=== PATIENT | male | born 1970 | race African-American/Black ===

== ENCOUNTER 2020-09-07 21:03 | Inpatient (IN) | payer SELFPAY ==
[2020-09-07 21:46] LABS: #Monocytes 0.6 10x3/uL (0.0-1.1); #Neutrophils 3.8 10x3/uL (1.5-8.4); %Basophils 0.4 % (0.0-2.0); %Eosinophils 0.6 % (0.0-6.0); %Lymphocytes 16.2 % (18.0-47.0); %Monocytes 11.3 % (0.0-10.0); %Neutrophils 71.3 % (40.0-75.0); Mean Corpuscular HGB CONC 31.6 g/dL (32.0-36.0); Mean Corpuscular Hemoglobin 29.7 pg (27.0-33.0); Mean Corpuscular Volume 94.1 fl (81.2-95.1); Mean Platelet Volume 11.8 fl (7.4-10.4); Platelet Count 208 10x3/uL (150-450); RBC Distribution Width 14.1 % (11.5-14.5); Red Blood Cell (RBC) Count 5.05 10x6/uL (4.32-5.72); White Blood Cell (WBC) Count 5.4 10x3/uL (3.5-10.5)
[2020-09-07 22:01] LABS: ALT (SGPT) 17 U/L (8-55); AST (SGOT) 15 U/L (5-34); Albumin 3.9 g/dL (3.5-5.0); Alkaline Phosphatase 71 U/L (40-110); Anion Gap 12 mmol/L (10-20); BUN (Urea Nitrogen) 9 mg/dL (8.9-20.6); Bilirubin, Total 1.7 mg/dL (0.2-1.2); Calc. Creatinine Clearance 0 mL/min (70-130); Calcium 9.4 mg/dL (7.8-10.44); Carbon Dioxide 31 mmol/L (22-29); Chloride 98 mmol/L (98-107); Globulin 4.2 g/dL (2.4-3.5); Glucose 174 mg/dL (70-105); Potassium 3.6 mmol/L (3.5-5.1); Protein, Total 8.1 g/dL (6.0-8.3); Sodium 137 mmol/L (136-145)
[2020-09-07 22:31] LABS: SARS-CoV-2 NAA Rapid Test Not Detected (NotDetected)
[2020-09-07] MEDS: Lorazepam 2 MG/ML VIAL SLOW IVP SCH (23:00)
[2020-09-07 23:25] LABS: CKMB 1.2 ng/mL (0-6.6)
[2020-09-07] MEDS ORDERED: Nitroglycerin 2% Ointment 1 INCH/1 GM Packet ONE (23:44)
[2020-09-07] MEDS ORDERED: Enoxaparin Sodium 100 MG/ML SYRINGE ONE (23:44)
[2020-09-07] MEDS ORDERED: Aspirin Chewable 81 MG TAB ONE (23:44)
[2020-09-07] MEDS ORDERED: Zolpidem Tartrate 5 MG TAB PO PRN (23:45)
[2020-09-07] MEDS ORDERED: Ondansetron PF 4 MG/2 ML Vial IVP PRN (23:45)
[2020-09-07] MEDS ORDERED: Guaifenesin DM 100-10/5 ML UDCUP PO PRN (23:45)
[2020-09-07] MEDS ORDERED: Calcium Carbonate 500 MG ChewTAB PO PRN (23:45)
[2020-09-07] MEDS ORDERED: Bisacodyl 5 MG TAB PO PRN (23:45)
[2020-09-07] MEDS ORDERED: hydrALAZINE 20 MG/ML VIAL SLOW IVP PRN (23:49)
[2020-09-07] MEDS ORDERED: Dextrose 50% Abboject 50 ML SYRINGE SLOW IVP PRN (23:53)
[2020-09-07] MEDS ORDERED: Dextrose 5% in Water 1,000 ML IV PRN (23:53)
[2020-09-07] MEDS ORDERED: Lorazepam 2 MG/ML VIAL ONE (23:53)
[2020-09-08] MEDS ORDERED: Furosemide 40 MG/4 ML VIAL ONE (00:55)
[2020-09-08] MEDS ORDERED: Labetalol HCl 100 MG/20 ML VIAL SLOW IVP PRN (01:14)
[2020-09-08 02:31] VITALS: BMI 52.2
[2020-09-08] MEDS ORDERED: Furosemide 40 MG/4 ML VIAL SLOW IVP SCH (03:00)
[2020-09-08 03:30] LABS: Bilirubin Neg (Negative); Blood, Urine Negative (Negative); Clarity Clear (Clear); Glucose, Urine (Dipstick) Normal (Negative); Ketone, Urine Negative (Negative); Leukocyte Negative (Negative); Nitrite Negative (Negative); Protein, Urine (Dipstick) Negative (Neg-Trace); Specific Gravity, Urine 1.005 (1.002-1.036); Urobilinogen Normal mg/dL (Less than 2); pH, Urine 6.5 (5.0-9.0)
[2020-09-08] MEDS: Lorazepam 2 MG/ML VIAL SLOW IVP SCH (04:19)
[2020-09-08 05:23] LABS: RBC/HPF None Seen HPF (0-3)
[2020-09-08 05:24] LABS: Bacteria/HPF None Seen HPF (None Seen); WBC/HPF None Seen HPF (0-3)
[2020-09-08 06:54] LABS: ALT (SGPT) 14 U/L (8-55); AST (SGOT) 15 U/L (5-34); Albumin 3.4 g/dL (3.5-5.0); Alkaline Phosphatase 62 U/L (40-110); Anion Gap 15 mmol/L (10-20); BUN (Urea Nitrogen) 8 mg/dL (8.9-20.6); Bilirubin, Total 1.3 mg/dL (0.2-1.2); Calc. Creatinine Clearance 239 mL/min (70-130); Calcium 8.4 mg/dL (7.8-10.44); Carbon Dioxide 29 mmol/L (22-29); Chloride 99 mmol/L (98-107); Globulin 3.8 g/dL (2.4-3.5); Glucose 169 mg/dL (70-105); Potassium 3.4 mmol/L (3.5-5.1); Protein, Total 7.2 g/dL (6.0-8.3); Sodium 140 mmol/L (136-145)
[2020-09-08 07:05] LABS: #Eosinphils 0.1 10x3/uL (0.0-0.5); #Monocytes 0.5 10x3/uL (0.0-1.1); #Neutrophils 2.9 10x3/uL (1.5-8.4); %Basophils 0.5 % (0.0-2.0); %Eosinophils 1.1 % (0.0-6.0); %Lymphocytes 20.5 % (18.0-47.0); %Monocytes 11.4 % (0.0-10.0); %Neutrophils 66.3 % (40.0-75.0); Hemoglobin 14.2 g/dL (13.5-17.5); Mean Corpuscular HGB CONC 30.9 g/dL (32.0-36.0); Mean Corpuscular Hemoglobin 29.6 pg (27.0-33.0); Mean Corpuscular Volume 95.6 fl (81.2-95.1); Mean Platelet Volume 12.2 fl (7.4-10.4); Platelet Count 196 10x3/uL (150-450); RBC Distribution Width 14.2 % (11.5-14.5); White Blood Cell (WBC) Count 4.4 10x3/uL (3.5-10.5)
[2020-09-08] MEDS: Albuterol Sulfate 2.5 mg/3 ml Neb NEB SCH ×3 (07:40→19:45)
[2020-09-08] MEDS ORDERED: Carvedilol 6.25 MG TAB PO SCH ×2 (08:00→19:15)
[2020-09-08] MEDS ORDERED: Potassium Chloride 20 MEQ TAB PO SCH (08:15)
[2020-09-08] MEDS: Famotidine/PF 20 mg/2ml Vial SLOW IVP SCH ×2 (09:00→21:28)
[2020-09-08 11:24] LABS: Hemoglobin A1c 8.2 % (4.0-6.0)
[2020-09-08] MEDS: Enoxaparin Sodium 40 MG/0.4 ML SYRINGE SC SCH (19:30)
[2020-09-08] MEDS: Aspirin 81 mg Enteric Coated Tablet PO SCH (19:30)
[2020-09-08] MEDS: Losartan 25 MG TAB PO SCH (19:31)
[2020-09-08] MEDS: Senokot S 8.6-50 MG TAB PO SCH ×2 (19:31→21:29)
[2020-09-09] MEDS: Albuterol Sulfate 2.5 mg/3 ml Neb NEB SCH ×4 (01:25→19:35)
[2020-09-09] MEDS: HumaLOG 300 UNITS/3 ML VIAL SC PRN ×2 (06:20→21:45)
[2020-09-09] MEDS: Losartan 25 MG TAB PO SCH (09:00)
[2020-09-09] MEDS: Aspirin 81 mg Enteric Coated Tablet PO SCH (09:00)
[2020-09-09] MEDS: Famotidine/PF 20 mg/2ml Vial SLOW IVP SCH ×2 (09:00→20:06)
[2020-09-09] MEDS: Enoxaparin Sodium 40 MG/0.4 ML SYRINGE SC SCH (09:00)
[2020-09-09] MEDS: Carvedilol 6.25 MG TAB PO SCH ×2 (09:00→18:00)
[2020-09-09] MEDS: Fluticasone Propionate Nasal Spray 16 gm Bottle NASAL SCH (12:26)
[2020-09-09] MEDS: Senokot S 8.6-50 MG TAB PO SCH ×2 (12:42→20:06)
[2020-09-09] MEDS: Polyethylene Glycol 3350 17 GM Packet PO SCH (16:16)
[2020-09-10] MEDS: HYDROcodone/Acetaminophen 5/325 mg Tablet PO PRN ×2 (01:05→09:01)
[2020-09-10] MEDS: Albuterol Sulfate 2.5 mg/3 ml Neb NEB SCH ×4 (01:30→20:30)
[2020-09-10] MEDS: Furosemide 20 MG/2 ML VIAL SLOW IVP SCH ×2 (05:45→15:11)
[2020-09-10] MEDS: Polyethylene Glycol 3350 17 GM Packet PO SCH (09:00)
[2020-09-10] MEDS: Famotidine/PF 20 mg/2ml Vial SLOW IVP SCH ×2 (09:01→20:24)
[2020-09-10] MEDS: Losartan 25 MG TAB PO SCH (09:01)
[2020-09-10] MEDS: Enoxaparin Sodium 40 MG/0.4 ML SYRINGE SC SCH (09:01)
[2020-09-10] MEDS: Senokot S 8.6-50 MG TAB PO SCH ×2 (09:01→20:24)
[2020-09-10] MEDS: Carvedilol 6.25 MG TAB PO SCH ×2 (09:02→17:34)
[2020-09-10] MEDS: Aspirin 81 mg Enteric Coated Tablet PO SCH (09:02)
[2020-09-10] MEDS: Fluticasone Propionate Nasal Spray 16 gm Bottle NASAL SCH (13:03)
[2020-09-10] MEDS ORDERED: Hydrochlorothiazide 25 MG TAB PO SCH (16:00)
[2020-09-10] MEDS: Hydrochlorothiazide 25 MG TAB PO SCH (17:35)
[2020-09-10] MEDS: Acetaminophen 325 MG TAB PO PRN (20:24)
[2020-09-10] MEDS: HumaLOG 300 UNITS/3 ML VIAL SC PRN (22:30)
[2020-09-10] MEDS ORDERED: Oxymetazoline HCl 0.05% ( 15 ML ) NASAL SCH (23:30)
[2020-09-11] MEDS ORDERED: Oxymetazoline HCl 0.05% ( 15 ML ) ONE (00:07)
[2020-09-11] MEDS: Albuterol Sulfate 2.5 mg/3 ml Neb NEB SCH ×2 (00:55→07:30)
[2020-09-11] MEDS: Furosemide 20 MG/2 ML VIAL SLOW IVP SCH (05:54)
[2020-09-11] MEDS: Acetaminophen 325 MG TAB PO PRN (06:12)
[2020-09-11] MEDS: Senokot S 8.6-50 MG TAB PO SCH (08:30)
[2020-09-11] MEDS: Polyethylene Glycol 3350 17 GM Packet PO SCH (08:30)
[2020-09-11] MEDS: Enoxaparin Sodium 40 MG/0.4 ML SYRINGE SC SCH (08:34)
[2020-09-11] MEDS: Famotidine/PF 20 mg/2ml Vial SLOW IVP SCH (08:34)
[2020-09-11] MEDS: Hydrochlorothiazide 25 MG TAB PO SCH (08:34)
[2020-09-11] MEDS: Carvedilol 6.25 MG TAB PO SCH (08:35)
[2020-09-11] MEDS: Losartan 25 MG TAB PO SCH (08:35)
[2020-09-11] MEDS: Aspirin 81 mg Enteric Coated Tablet PO SCH (08:35)
[2020-09-11] MEDS ORDERED: Oxymetazoline HCl 0.05% ( 15 ML ) NASAL SCH (09:00)
[2020-09-11] MEDS: Fluticasone Propionate Nasal Spray 16 gm Bottle NASAL SCH (10:03)
[2020-09-11 11:16] VITALS: BP 152/62; TEMP 97.8
[2020-09-11] MEDS: HumaLOG 300 UNITS/3 ML VIAL SC PRN (11:18)
== END 2020-09-11 13:32 | disposition home or self-care (01) | DRG 391 ==
LOC: CSHERS 21:03 → CSHTELE 09-08 02:08
PROVIDERS: ADMIT Student in an Organized Health Care Education/Training Program; ATTEND Family Medicine
DX: K59.00 Constipation, unspecified (principal); J96.01 Acute respiratory failure with hypoxia; Z68.43 Body mass index [BMI] 50.0-59.9, adult; E66.2 Morbid (severe) obesity with alveolar hypoventilation; I16.0 Hypertensive urgency; Z20.822 Contact with and (suspected) exposure to COVID-19; E11.65 Type 2 diabetes mellitus with hyperglycemia
CPT/HCPCS: 0240U; 36416; 71275; 74022; 74177; 74250; 80053; 81001; 82553; 83036; 83690; 83880; 84443; 84484; 85025; 93005; 93306; 93970; 94640; 94760; 96372; 96374; 96375; J0360; J1650; J1815; J1940; J2060; J7611; S0028

== ENCOUNTER 2021-09-19 11:31 | Inpatient (IN) | payer SELFPAY ==
[2021-09-19 12:09] LABS: #Monocytes 0.9 10x3/uL (0.0-1.1); #Neutrophils 18.5 10x3/uL (1.5-8.4); %Basophils 0.1 % (0.0-2.0); %Lymphocytes 3.4 % (18.0-47.0); %Monocytes 4.6 % (0.0-10.0); Mean Corpuscular HGB CONC 31.3 g/dL (32.0-36.0); Mean Corpuscular Hemoglobin 30.1 pg (27.0-33.0); Mean Corpuscular Volume 96.1 fl (81.2-95.1); Mean Platelet Volume 11.3 fl (7.4-10.4); Platelet Count 181 10x3/uL (150-450); RBC Distribution Width 14.3 % (11.5-14.5); Red Blood Cell (RBC) Count 4.32 10x6/uL (4.32-5.72); White Blood Cell (WBC) Count 20.3 10x3/uL (3.5-10.5)
[2021-09-19] MEDS ORDERED: Cefepime 2 GM VIAL ONE (12:17)
[2021-09-19 12:18] LABS: INR-International Normal Ratio 1.2; PTT 26.9 sec (22.0-33.0); Prothrombin Time 12.8 sec (9.5-12.1)
[2021-09-19 12:25] LABS: ALT (SGPT) 13 U/L (8-55); AST (SGOT) 22 U/L (5-34); Albumin 3.9 g/dL (3.5-5.0); Alkaline Phosphatase 64 U/L (40-110); Anion Gap 15 mmol/L (10-20); BUN (Urea Nitrogen) 12 mg/dL (8.4-25.7); Bilirubin, Total 2.4 mg/dL (0.2-1.2); Calc. Creatinine Clearance 0 mL/min (70-130); Calcium 9.3 mg/dL (7.8-10.44); Carbon Dioxide 28 mmol/L (22-29); Chloride 99 mmol/L (98-107); Glucose 237 mg/dL (70-105); Magnesium 1.4 mg/dL (1.6-2.6); Protein, Total 7.9 g/dL (6.0-8.3); Sodium 138 mmol/L (136-145)
[2021-09-19 12:38] LABS: ALV-art Gradient 114.435 mmHg (0-20); Actual Bicarbonate (HCO3a) 29.3 mEq/L (22-28); Base Excess (BEa) 4.7 mEq/L (-2.0 to +3.0); CO2 Tension 43.3 mmHg (35.0-45.0); Calcium, Ionized (arterial) 1.14 mmol/L (1.12-1.30); Carboxyhemoglobin (COHb) 1.2 gm% (0.0-3.0); Hemoglobin (Hb) 13.7 g/dL (14.0-18.0); O2 Tension (PaO2), arterial 59.6 mmHg (80.0-100.0); Potassium - ABG Lab 3.6 mmol/L (3.70-5.30); Puncture Site RRA; pH, Arterial 7.45 (7.35-7.45)
[2021-09-19 12:38] LABS: Band 4 % (5-11); Lymphocytes 3 % (21-51); MDiff Complete? YES; Neutrophil 91 % (42-75)
[2021-09-19 12:39] LABS: Large Platelets SLIGHT; Monocytes 2 % (0-10); Platelet Morphology Comment Appears Adequate; RBC Morphology Normal
[2021-09-19 12:45] LABS: CKMB 0.4 ng/mL (0-6.6)
[2021-09-19 13:07] LABS: SARS-CoV-2 NAA Rapid Test Not Detected (NotDetected)
[2021-09-19] MEDS ORDERED: Acetaminophen 500 MG TAB ONE (13:14)
[2021-09-19 13:55] LABS: Bilirubin Neg (Negative); Blood, Urine 10 (Negative); Clarity Clear (Clear); Glucose, Urine (Dipstick) Normal (Negative); Ketone, Urine Negative (Negative); Leukocyte Negative (Negative); Nitrite Negative (Negative); Protein, Urine (Dipstick) 100 mg/dl (Neg-Trace)
[2021-09-19 14:21] LABS: Bacteria/HPF Rare-Few HPF (None Seen); Mucous/LPF Rare LPF (<2+); RBC/HPF 0-3 HPF (0-3); Squamous Epithelial 0-3 HPF (0-3); WBC/HPF 0-3 HPF (0-3)
[2021-09-19] MEDS ORDERED: Ondansetron ODT 4 MG TAB PO PRN (15:05)
[2021-09-19] MEDS ORDERED: Acetaminophen 650 MG Suppository PR PRN (15:05)
[2021-09-19] MEDS ORDERED: Acetaminophen 325 MG TAB PO PRN (15:05)
[2021-09-19] MEDS ORDERED: Ondansetron PF 4 MG/2 ML Vial IVP PRN (15:05)
[2021-09-19] MEDS ORDERED: Magnesium 2 GM/50 ML(in water) 2 GM in Premix Bag 1 BAG IVPB SCH (15:15)
[2021-09-19] MEDS ORDERED: Vancomycin 1 GM in Premix Bag 1 BAG IVPB SCH (15:15)
[2021-09-19] MEDS ORDERED: Loratadine 10 MG TAB PO SCH (15:30)
[2021-09-19 15:33] LABS: Troponin I 0.075 ng/mL (< 0.028)
[2021-09-19] MEDS ORDERED: Furosemide 40 MG/4 ML VIAL SLOW IVP SCH (16:00)
[2021-09-19] MEDS ORDERED: HumaLOG 300 UNITS/3 ML VIAL SC PRN (16:00)
[2021-09-19] MEDS ORDERED: Dextrose 50% Abboject 50 ML SYRINGE SLOW IVP PRN (16:00)
[2021-09-19] MEDS ORDERED: Dextrose 5% in Water 1,000 ML IV PRN (16:00)
[2021-09-19] MEDS: Carvedilol 6.25 MG TAB PO SCH (16:37)
[2021-09-19] MEDS: HumaLOG 300 UNITS/3 ML VIAL SC PRN (16:40)
[2021-09-19 19:18] LABS: Troponin I 0.069 ng/mL (< 0.028)
[2021-09-19] MEDS: Fluticasone Propionate Nasal Spray 16 gm Bottle NASAL SCH (20:23)
[2021-09-19] MEDS: Heparin 5,000 UNITS/ML VIAL SC SCH (20:24)
[2021-09-19] MEDS ORDERED: VANCOMYCIN 2 GRAM/400 ML BAG 2 GM in Premix Bag 1 BAG IVPB SCH (23:59)
[2021-09-20] MEDS ORDERED: Labetalol HCl 100 MG/20 ML VIAL SLOW IVP SCH (02:15)
[2021-09-20 04:41] LABS: #Monocytes 0.7 10x3/uL (0.0-1.1); #Neutrophils 14.1 10x3/uL (1.5-8.4); %Basophils 0.2 % (0.0-2.0); %Eosinophils 0.2 % (0.0-6.0); %Lymphocytes 4.4 % (18.0-47.0); %Monocytes 4.4 % (0.0-10.0); %Neutrophils 90.4 % (40.0-75.0); Hemoglobin 12.6 g/dL (13.5-17.5); Mean Corpuscular HGB CONC 31.5 g/dL (32.0-36.0); Mean Corpuscular Hemoglobin 30.1 pg (27.0-33.0); Mean Corpuscular Volume 95.5 fl (81.2-95.1); Platelet Count 172 10x3/uL (150-450); RBC Distribution Width 14.5 % (11.5-14.5); Red Blood Cell (RBC) Count 4.19 10x6/uL (4.32-5.72); White Blood Cell (WBC) Count 15.5 10x3/uL (3.5-10.5)
[2021-09-20 04:49] LABS: Anion Gap 15 mmol/L (10-20); BUN (Urea Nitrogen) 10 mg/dL (8.4-25.7); Calc. Creatinine Clearance 180 mL/min (70-130); Calcium 8.9 mg/dL (7.8-10.44); Carbon Dioxide 29 mmol/L (22-29); Chloride 96 mmol/L (98-107); Glucose 165 mg/dL (70-105); Potassium 3.8 mmol/L (3.5-5.1); Sodium 136 mmol/L (136-145)
[2021-09-20 06:13] VITALS: BMI 50.3
[2021-09-20] MEDS: Heparin 5,000 UNITS/ML VIAL SC SCH ×2 (08:30→20:22)
[2021-09-20] MEDS: Atorvastatin Calcium 40 MG TAB PO SCH (08:30)
[2021-09-20] MEDS: Carvedilol 6.25 MG TAB PO SCH (08:30)
[2021-09-20] MEDS: Fluticasone Propionate Nasal Spray 16 gm Bottle NASAL SCH ×2 (08:31→20:58)
[2021-09-20] MEDS: Vancomycin 1.5 GRAM/300 ML BAG 1.5 GM in Premix Bag 1 BAG IVPB SCH ×2 (12:06→20:22)
[2021-09-20] MEDS: HumaLOG 300 UNITS/3 ML VIAL SC PRN ×2 (16:50→21:01)
[2021-09-20] MEDS: Carvedilol 12.5 MG TAB PO SCH (16:50)
[2021-09-20] MEDS ORDERED: Furosemide 100 MG/10 ML VIAL SLOW IVP SCH (17:00)
[2021-09-20] MEDS ORDERED: Piperacillin/Tazobactam 3.375 GM in Sodium Chloride 0.9% 100 ML IVPB SCH ×2 (17:00→17:45)
[2021-09-20] MEDS ORDERED: Loratadine 10 MG TAB PO SCH (17:15)
[2021-09-20] MEDS: Piperacillin/Tazobactam 3.375 GM in Sodium Chloride 0.9% 100 ML IVPB SCH (20:22)
[2021-09-21 04:38] LABS: #Monocytes 0.8 10x3/uL (0.0-1.1); #Neutrophils 9.3 10x3/uL (1.5-8.4); %Basophils 0.2 % (0.0-2.0); %Eosinophils 0.3 % (0.0-6.0); %Lymphocytes 8.1 % (18.0-47.0); %Monocytes 7.1 % (0.0-10.0); %Neutrophils 83.8 % (40.0-75.0); Hemoglobin 11.4 g/dL (13.5-17.5); Mean Corpuscular HGB CONC 31.7 g/dL (32.0-36.0); Mean Corpuscular Hemoglobin 30.6 pg (27.0-33.0); Mean Corpuscular Volume 96.5 fl (81.2-95.1); Mean Platelet Volume 11.9 fl (7.4-10.4); Platelet Count 159 10x3/uL (150-450); RBC Distribution Width 14.5 % (11.5-14.5); Red Blood Cell (RBC) Count 3.73 10x6/uL (4.32-5.72); White Blood Cell (WBC) Count 11.1 10x3/uL (3.5-10.5)
[2021-09-21 05:00] LABS: Anion Gap 15 mmol/L (10-20); BUN (Urea Nitrogen) 17 mg/dL (8.4-25.7); Calc. Creatinine Clearance 174 mL/min (70-130); Calcium 8.7 mg/dL (7.8-10.44); Carbon Dioxide 30 mmol/L (22-29); Chloride 99 mmol/L (98-107); Glucose 173 mg/dL (70-105); Potassium 3.5 mmol/L (3.5-5.1); Sodium 140 mmol/L (136-145)
[2021-09-21] MEDS: Furosemide 100 MG/10 ML VIAL SLOW IVP SCH ×2 (05:06→15:19)
[2021-09-21] MEDS: Vancomycin 1.5 GRAM/300 ML BAG 1.5 GM in Premix Bag 1 BAG IVPB SCH (05:06)
[2021-09-21] MEDS: Piperacillin/Tazobactam 3.375 GM in Sodium Chloride 0.9% 100 ML IVPB SCH ×3 (06:13→22:53)
[2021-09-21] MEDS: Fluticasone Propionate Nasal Spray 16 gm Bottle NASAL SCH ×2 (07:50→20:17)
[2021-09-21] MEDS: Heparin 5,000 UNITS/ML VIAL SC SCH ×2 (07:50→20:17)
[2021-09-21] MEDS: Carvedilol 12.5 MG TAB PO SCH ×2 (07:50→17:14)
[2021-09-21] MEDS: Atorvastatin Calcium 40 MG TAB PO SCH (07:50)
[2021-09-21] MEDS: Loratadine 10 MG TAB PO SCH (07:50)
[2021-09-21] MEDS: HumaLOG 300 UNITS/3 ML VIAL SC PRN ×2 (07:51→17:13)
[2021-09-21 11:20] LABS: Vancomycin, Trough 22.3 ug/mL
[2021-09-21] MEDS ORDERED: VANCOMYCIN 1.25 GM/250 ML BAG 1.25 GM in Premix Bag 1 BAG IVPB SCH (12:00)
[2021-09-21] MEDS: Vancomycin HCl 1 GM in Sodium Chloride 0.9% 250 ML 250 ML IVPB SCH ×2 (15:24→21:16)
[2021-09-22 04:30] LABS: #Eosinphils 0.1 10x3/uL (0.0-0.5); #Monocytes 0.6 10x3/uL (0.0-1.1); #Neutrophils 5.3 10x3/uL (1.5-8.4); %Basophils 0.3 % (0.0-2.0); %Eosinophils 1.4 % (0.0-6.0); %Lymphocytes 13.3 % (18.0-47.0); %Monocytes 8.4 % (0.0-10.0); %Neutrophils 76.3 % (40.0-75.0); Hemoglobin 10.8 g/dL (13.5-17.5); Mean Corpuscular HGB CONC 30.8 g/dL (32.0-36.0); Mean Corpuscular Hemoglobin 29.8 pg (27.0-33.0); Mean Platelet Volume 11.7 fl (7.4-10.4); Platelet Count 176 10x3/uL (150-450); RBC Distribution Width 14.3 % (11.5-14.5); Red Blood Cell (RBC) Count 3.62 10x6/uL (4.32-5.72); White Blood Cell (WBC) Count 6.9 10x3/uL (3.5-10.5)
[2021-09-22 04:38] LABS: Anion Gap 12 mmol/L (10-20); BUN (Urea Nitrogen) 19 mg/dL (8.4-25.7); Calc. Creatinine Clearance 221 mL/min (70-130); Calcium 8.5 mg/dL (7.8-10.44); Carbon Dioxide 33 mmol/L (22-29); Chloride 98 mmol/L (98-107); Glucose 170 mg/dL (70-105); Potassium 3.3 mmol/L (3.5-5.1); Sodium 140 mmol/L (136-145)
[2021-09-22] MEDS: Furosemide 100 MG/10 ML VIAL SLOW IVP SCH (05:27)
[2021-09-22] MEDS: Vancomycin HCl 1 GM in Sodium Chloride 0.9% 250 ML 250 ML IVPB SCH (05:28)
[2021-09-22] MEDS: Piperacillin/Tazobactam 3.375 GM in Sodium Chloride 0.9% 100 ML IVPB SCH (06:42)
[2021-09-22] MEDS: Carvedilol 12.5 MG TAB PO SCH ×2 (11:21→18:03)
[2021-09-22] MEDS: Fluticasone Propionate Nasal Spray 16 gm Bottle NASAL SCH ×2 (11:21→21:04)
[2021-09-22] MEDS: Atorvastatin Calcium 40 MG TAB PO SCH (11:21)
[2021-09-22] MEDS: Heparin 5,000 UNITS/ML VIAL SC SCH ×2 (11:22→21:04)
[2021-09-22] MEDS: Loratadine 10 MG TAB PO SCH (11:22)
[2021-09-22] MEDS ORDERED: Electrolyte Replacement Protocol FS SCH (13:30)
[2021-09-22] MEDS ORDERED: Potassium Chloride 20 MEQ TAB PO SCH (13:45)
[2021-09-22] MEDS: cefTRIAXone\\ROCEPHIN 1 GM in Sodium Chloride 0.9% 100 ML IVPB SCH (14:59)
[2021-09-22] MEDS: HumaLOG 300 UNITS/3 ML VIAL SC PRN (15:22)
[2021-09-22] MEDS ORDERED: Furosemide 40 MG/4 ML VIAL SLOW IVP SCH (20:00)
[2021-09-22] MEDS: Doxycycline 100 MG CAP PO SCH (21:04)
[2021-09-23 04:47] LABS: #Eosinphils 0.2 10x3/uL (0.0-0.5); #Monocytes 0.6 10x3/uL (0.0-1.1); #Neutrophils 4.1 10x3/uL (1.5-8.4); %Basophils 0.3 % (0.0-2.0); %Eosinophils 2.5 % (0.0-6.0); %Monocytes 10.4 % (0.0-10.0); %Neutrophils 68.3 % (40.0-75.0); Hemoglobin 11.5 g/dL (13.5-17.5); Mean Corpuscular HGB CONC 30.6 g/dL (32.0-36.0); Mean Corpuscular Hemoglobin 30.2 pg (27.0-33.0); Mean Corpuscular Volume 98.7 fl (81.2-95.1); Mean Platelet Volume 11.2 fl (7.4-10.4); Platelet Count 202 10x3/uL (150-450); RBC Distribution Width 14.1 % (11.5-14.5); Red Blood Cell (RBC) Count 3.81 10x6/uL (4.32-5.72); White Blood Cell (WBC) Count 6.1 10x3/uL (3.5-10.5)
[2021-09-23 05:02] LABS: Phosphorus 2.6 mg/dL (2.3-4.7)
[2021-09-23 05:11] LABS: Anion Gap 13 mmol/L (10-20); BUN (Urea Nitrogen) 16 mg/dL (8.4-25.7); Calc. Creatinine Clearance 247 mL/min (70-130); Calcium 8.8 mg/dL (7.8-10.44); Carbon Dioxide 35 mmol/L (22-29); Chloride 97 mmol/L (98-107); Glucose 164 mg/dL (70-105); Magnesium 1.7 mg/dL (1.6-2.6); Potassium 3.5 mmol/L (3.5-5.1); Sodium 141 mmol/L (136-145)
[2021-09-23] MEDS ORDERED: Magnesium 2 GM/50 ML(in water) 2 GM in Premix Bag 1 BAG IVPB SCH (05:30)
[2021-09-23] MEDS ORDERED: Potassium Chloride 20 MEQ TAB PO SCH ×2 (05:30→11:30)
[2021-09-23] MEDS ORDERED: Furosemide 100 MG/10 ML VIAL SLOW IVP SCH (06:00)
[2021-09-23] MEDS: Atorvastatin Calcium 40 MG TAB PO SCH (08:56)
[2021-09-23] MEDS: HumaLOG 300 UNITS/3 ML VIAL SC PRN ×2 (08:56→12:28)
[2021-09-23] MEDS: Carvedilol 12.5 MG TAB PO SCH ×2 (08:56→17:46)
[2021-09-23] MEDS: Doxycycline 100 MG CAP PO SCH ×2 (08:56→20:56)
[2021-09-23] MEDS: Loratadine 10 MG TAB PO SCH (08:56)
[2021-09-23] MEDS: Heparin 5,000 UNITS/ML VIAL SC SCH ×2 (08:56→20:57)
[2021-09-23] MEDS: Fluticasone Propionate Nasal Spray 16 gm Bottle NASAL SCH ×2 (08:57→20:57)
[2021-09-23 10:09] LABS: Potassium 3.5 mmol/L (3.5-5.1)
[2021-09-23] MEDS: cefTRIAXone\\ROCEPHIN 1 GM in Sodium Chloride 0.9% 100 ML IVPB SCH (12:30)
[2021-09-23] MEDS: Furosemide 40 MG/4 ML VIAL SLOW IVP SCH ×2 (15:15→20:56)
[2021-09-23] MEDS ORDERED: Senokot S 8.6-50 MG TAB PO PRN (19:01)
[2021-09-24 04:42] LABS: #Eosinphils 0.2 10x3/uL (0.0-0.5); #Monocytes 0.6 10x3/uL (0.0-1.1); #Neutrophils 4.2 10x3/uL (1.5-8.4); %Basophils 0.6 % (0.0-2.0); %Eosinophils 2.7 % (0.0-6.0); %Lymphocytes 20.4 % (18.0-47.0); %Monocytes 9.4 % (0.0-10.0); %Neutrophils 66.4 % (40.0-75.0); Hemoglobin 12.1 g/dL (13.5-17.5); Mean Corpuscular HGB CONC 30.8 g/dL (32.0-36.0); Mean Corpuscular Hemoglobin 30.6 pg (27.0-33.0); Mean Corpuscular Volume 99.2 fl (81.2-95.1); Mean Platelet Volume 11.4 fl (7.4-10.4); Platelet Count 226 10x3/uL (150-450); RBC Distribution Width 13.9 % (11.5-14.5); Red Blood Cell (RBC) Count 3.96 10x6/uL (4.32-5.72); White Blood Cell (WBC) Count 6.3 10x3/uL (3.5-10.5)
[2021-09-24 04:45] LABS: Anion Gap 12 mmol/L (10-20); BUN (Urea Nitrogen) 16 mg/dL (8.4-25.7); Calc. Creatinine Clearance 258 mL/min (70-130); Calcium 9.1 mg/dL (7.8-10.44); Carbon Dioxide 36 mmol/L (22-29); Chloride 97 mmol/L (98-107); Glucose 158 mg/dL (70-105); Potassium 3.6 mmol/L (3.5-5.1); Sodium 141 mmol/L (136-145)
[2021-09-24] MEDS ORDERED: Magnesium 2 GM/50 ML(in water) 2 GM in Premix Bag 1 BAG IVPB SCH (06:00)
[2021-09-24 07:13] LABS: Actual Bicarbonate (HCO3v) 37 mEq/L (22-28); Base Excess 9.7 mEq/L (-2.0 to +3.0); Calcium, Ionized (venous) 1.06 mmol/L (1.16-1.32); Chloride (VBG) 97 mmol/L (98-106); Hemoglobin (Hb) 13.2 g/dL (13.1-17.2); Potassium (VBG) 3.56 mmol/L (3.70-5.30); Puncture Site Other Site; RapidComm Collect By CSUC.CNC; Sodium 138.9 mmol/L (133-146); pH (venous) 7.38 (7.32-7.43)
[2021-09-24] MEDS: Fluticasone Propionate Nasal Spray 16 gm Bottle NASAL SCH ×2 (09:11→20:22)
[2021-09-24] MEDS: Furosemide 40 MG/4 ML VIAL SLOW IVP SCH ×2 (09:11→15:18)
[2021-09-24] MEDS: Atorvastatin Calcium 40 MG TAB PO SCH (09:11)
[2021-09-24] MEDS: Carvedilol 12.5 MG TAB PO SCH ×2 (09:11→16:15)
[2021-09-24] MEDS: Heparin 5,000 UNITS/ML VIAL SC SCH ×2 (09:11→20:22)
[2021-09-24] MEDS: Doxycycline 100 MG CAP PO SCH ×2 (09:11→20:21)
[2021-09-24] MEDS: Loratadine 10 MG TAB PO SCH (09:11)
[2021-09-24] MEDS: Polyethylene Glycol 3350 17 GM Packet PO SCH (09:12)
[2021-09-24] MEDS: HumaLOG 300 UNITS/3 ML VIAL SC PRN ×2 (11:28→16:32)
[2021-09-24] MEDS: cefTRIAXone\\ROCEPHIN 1 GM in Sodium Chloride 0.9% 100 ML IVPB SCH (15:17)
[2021-09-24] MEDS ORDERED: hydrOXYzine 25 MG TAB PO PRN (15:42)
[2021-09-24] MEDS ORDERED: Lorazepam 0.5 MG TAB PO PRN (17:35)
[2021-09-25 05:26] LABS: BUN (Urea Nitrogen) 15 mg/dL (8.4-25.7); Calc. Creatinine Clearance 246 mL/min (70-130); Calcium 9.4 mg/dL (7.8-10.44); Glucose 156 mg/dL (70-105); Magnesium 2.1 mg/dL (1.6-2.6)
[2021-09-25 05:33] LABS: Anion Gap 18 mmol/L (10-20); Carbon Dioxide 34 mmol/L (22-29); Chloride 95 mmol/L (98-107); Potassium 3.9 mmol/L (3.5-5.1); Sodium 143 mmol/L (136-145)
[2021-09-25] MEDS: Atorvastatin Calcium 40 MG TAB PO SCH (08:33)
[2021-09-25] MEDS: Carvedilol 12.5 MG TAB PO SCH (08:33)
[2021-09-25] MEDS: Doxycycline 100 MG CAP PO SCH (08:33)
[2021-09-25] MEDS: Loratadine 10 MG TAB PO SCH (08:34)
[2021-09-25] MEDS: Heparin 5,000 UNITS/ML VIAL SC SCH (08:34)
[2021-09-25] MEDS: Polyethylene Glycol 3350 17 GM Packet PO SCH (08:35)
[2021-09-25] MEDS: Fluticasone Propionate Nasal Spray 16 gm Bottle NASAL SCH (08:40)
[2021-09-25] MEDS ORDERED: Furosemide 40 MG/4 ML VIAL SLOW IVP SCH (09:00)
[2021-09-25] MEDS: cefTRIAXone\\ROCEPHIN 1 GM in Sodium Chloride 0.9% 100 ML IVPB SCH (15:11)
[2021-09-25 16:55] VITALS: BP 169/94; TEMP 97.9
== END 2021-09-25 17:17 | disposition home or self-care (01) | DRG 871 ==
LOC: CSHERS 11:31 → CSHICU 15:08 → CSHTELE 09-21 11:17
PROVIDERS: ADMIT Family Medicine; ATTEND Family Medicine
PROC: 3E03329 Introduction of Other Anti-infective into Peripheral Vein, Percutaneous Approach (ICD-10-PCS; principal; 2021-09-19)
PROC: 5A09357 Assistance with Respiratory Ventilation, Less than 24 Consecutive Hours, Continuous Positive Airway Pressure (ICD-10-PCS; 2021-09-19)
DX: A41.9 Sepsis, unspecified organism (principal); J96.21 Acute and chronic respiratory failure with hypoxia; J96.22 Acute and chronic respiratory failure with hypercapnia; L03.116 Cellulitis of left lower limb; Z68.42 Body mass index [BMI] 45.0-49.9, adult; E66.2 Morbid (severe) obesity with alveolar hypoventilation; E87.3 Alkalosis; R79.89 Other specified abnormal findings of blood chemistry; Z20.822 Contact with and (suspected) exposure to COVID-19; I11.0 Hypertensive heart disease with heart failure; I50.9 Heart failure, unspecified; E11.9 Type 2 diabetes mellitus without complications; E78.5 Hyperlipidemia, unspecified; Z79.899 Other long term (current) drug therapy; Z79.84 Long term (current) use of oral hypoglycemic drugs; Z90.49 Acquired absence of other specified parts of digestive tract
CPT/HCPCS: 36415; 36416; 36600; 71275; 80048; 80053; 80202; 81003; 81015; 82553; 82805; 83605; 83735; 83880; 84100; 84145; 84443; 84484; 85025; 85610; 85730; 87040; 93005; 93010; 93306; 94760; 96365; 96366; 96367; J0692; J0696; J1644; J1815; J1940; J2543; J3370; J3475; J3490; J7050

== ENCOUNTER 2022-12-21 13:50 | Inpatient (IN) | payer OTHER ==
[2022-12-21] MEDS ORDERED: Iopamidol 300 61% 100 ML VIAL FS ONE (14:21)
[2022-12-21 15:05] LABS: #Monocytes 1.3 10x3/uL (0.0-1.1); #Neutrophils 11.7 10x3/uL (1.5-8.4); %Basophils 0.2 % (0.0-2.0); %Eosinophils 0.2 % (0.0-6.0); %Lymphocytes 7.2 % (18.0-47.0); %Monocytes 9.1 % (0.0-10.0); %Neutrophils 82.9 % (40.0-75.0); Mean Corpuscular HGB CONC 31.4 g/dL (32.0-36.0); Mean Corpuscular Hemoglobin 30.9 pg (27.0-33.0); Mean Corpuscular Volume 98.5 fl (81.2-95.1); Mean Platelet Volume 11.6 fl (7.4-10.4); Platelet Count 222 10x3/uL (150-450); RBC Distribution Width 13.4 % (11.5-14.5); Red Blood Cell (RBC) Count 4.53 10x6/uL (4.32-5.72); White Blood Cell (WBC) Count 14.1 10x3/uL (3.5-10.5)
[2022-12-21 15:18] LABS: ALT (SGPT) 15 U/L (8-55); AST (SGOT) 15 U/L (5-34); Albumin 3.9 g/dL (3.5-5.0); Alkaline Phosphatase 61 U/L (40-110); Anion Gap 17 mmol/L (10-20); BUN (Urea Nitrogen) 14 mg/dL (8.4-25.7); Bilirubin, Total 1.2 mg/dL (0.2-1.2); Calc. Creatinine Clearance 0 mL/min (70-130); Calcium 9.4 mg/dL (7.8-10.44); Carbon Dioxide 32 mmol/L (22-29); Chloride 100 mmol/L (98-107); Estimated GFR 51; Globulin 4.3 g/dL (2.4-3.5); Glucose 169 mg/dL (70-105); Potassium 3.9 mmol/L (3.5-5.1); Protein, Total 8.2 g/dL (6.0-8.3); Sodium 145 mmol/L (136-145)
[2022-12-21] MEDS ORDERED: Lidocaine 1% w/Epinephrine 1:100K 20 ML VIAL FS SCH (15:30)
[2022-12-21] MEDS ORDERED: Dexamethasone 10 MG/ML VIAL ONE (16:00)
[2022-12-21] MEDS ORDERED: cefTRIAXone (ROCEPHIN) 1 GM VIAL ONE (16:00)
[2022-12-21] MEDS ORDERED: Silver Nitrate Application 1 EACH ONE (16:42)
[2022-12-21] MEDS ORDERED: Ondansetron PF 4 MG/2 ML Vial IVP PRN (17:00)
[2022-12-21] MEDS ORDERED: Midazolam HCl 5 mg/5 ml Vial ONE (17:12)
[2022-12-21] MEDS ORDERED: Rocuronium Bromide 10 MG/ML (10ML VIAL) ONE ×2 (17:13→18:49)
[2022-12-21] MEDS ORDERED: EPINEPHrine 1 MG/ML AMP ONE (17:19)
[2022-12-21] MEDS ORDERED: EPINEPHrine 1 MG/10 ML Abboject SYRINGE ONE (17:20)
[2022-12-21] MEDS ORDERED: Ketamine 50 MG/ML (10ML VIAL) ONE (17:25)
[2022-12-21] MEDS ORDERED: Oxymetazoline HCl 0.05% ( 15 ML ) ONE (17:29)
[2022-12-21] MEDS ORDERED: Lidocaine 2% 6 ML (Jelly) SYR ONE ×2 (17:29)
[2022-12-21] MEDS ORDERED: Ketamine 50 MG/ML (10ML VIAL) FS SCH (17:30)
[2022-12-21] MEDS ORDERED: Glucagon 1 MG/ML KIT IM PRN (17:54)
[2022-12-21] MEDS ORDERED: Dextrose 5% in Water 1,000 ML IV PRN (17:54)
[2022-12-21] MEDS ORDERED: Dextrose 50% Abboject 50 ML SYRINGE SLOW IVP PRN (17:54)
[2022-12-21 18:18] LABS: Hemoglobin 12.9 g/dL (13.5-17.5)
[2022-12-21] MEDS ORDERED: Vecuronium 10 MG VIAL ONE (18:22)
[2022-12-21 18:38] LABS: INR-International Normal Ratio 1.2; Prothrombin Time 13.1 sec (9.5-12.1)
[2022-12-21] MEDS ORDERED: Ventilator Sedation Protocol 1 EACH FS ONE (18:45)
[2022-12-21] MEDS ORDERED: PROPOFOL 200 MG/20 ML VIAL ONE (18:49)
[2022-12-21] MEDS ORDERED: hydrALAZINE 20 MG/ML VIAL SLOW IVP PRN (18:55)
[2022-12-21] MEDS ORDERED: Fentanyl BOLUS 250 ML IVPB PRN (19:15)
[2022-12-21] MEDS ORDERED: Lorazepam 2 MG/ML VIAL SLOW IVP PRN (19:15)
[2022-12-21] MEDS ORDERED: FENTANYL 2,000MCG/100-0.9%NACL 100 ML IVPB SCH (19:15)
[2022-12-21] MEDS ORDERED: Morphine 2 MG/ML VIAL SLOW IVP PRN (19:15)
[2022-12-21] MEDS ORDERED: Propofol BOLUS 1,000 MG/100 ML VIAL IV PRN (19:15)
[2022-12-21] MEDS: Sodium Chloride 0.9% 1,000 ML IV SCH (19:28)
[2022-12-21 20:16] LABS: Actual Bicarbonate (HCO3a) 29.4 mEq/L (22-28); Base Excess (BEa) 4.4 mEq/L (-2.0 to +3.0); CO2 Tension 45.1 mmHg (35.0-45.0); Calcium, Ionized (arterial) 1.06 mmol/L (1.12-1.30); Carboxyhemoglobin (COHb) 0.9 gm% (0.0-3.0); Hematocrit-ABG 39 % (42.0-52.0); Hemoglobin (Hb) 13.1 g/dL (14.0-18.0); O2 Tension (PaO2), arterial 102.9 mmHg (80.0-100.0); Potassium - ABG Lab 3.82 mmol/L (3.70-5.30); Puncture Site RRA; pH, Arterial 7.432 (7.35-7.45)
[2022-12-21 20:19] LABS: ALV-art Gradient 197.225 mmHg (0-20)
[2022-12-21] MEDS: HumaLOG 300 UNITS/3 ML VIAL SC PRN (21:40)
[2022-12-21] MEDS: Propofol 1,000 MG/100 ML VIAL IV PRN (21:55)
[2022-12-22] MEDS: Sodium Chloride 0.9% 1,000 ML IV SCH ×2 (02:59→12:01)
[2022-12-22 04:24] VITALS: BMI 53.3
[2022-12-22 04:24] LABS: #Monocytes 0.7 10x3/uL (0.0-1.1); #Neutrophils 16.8 10x3/uL (1.5-8.4); %Basophils 0.2 % (0.0-2.0); %Eosinophils 0.2 % (0.0-6.0); %Lymphocytes 5.5 % (18.0-47.0); %Monocytes 3.6 % (0.0-10.0); %Neutrophils 90.1 % (40.0-75.0); Hemoglobin 11.3 g/dL (13.5-17.5); Mean Corpuscular Hemoglobin 30.6 pg (27.0-33.0); Mean Corpuscular Volume 98.9 fl (81.2-95.1); Mean Platelet Volume 11.5 fl (7.4-10.4); Platelet Count 212 10x3/uL (150-450); RBC Distribution Width 13.5 % (11.5-14.5); Red Blood Cell (RBC) Count 3.69 10x6/uL (4.32-5.72); White Blood Cell (WBC) Count 18.7 10x3/uL (3.5-10.5)
[2022-12-22 04:40] LABS: ALT (SGPT) 15 U/L (8-55); AST (SGOT) 15 U/L (5-34); Albumin 3.1 g/dL (3.5-5.0); Alkaline Phosphatase 50 U/L (40-110); Anion Gap 17 mmol/L (10-20); BUN (Urea Nitrogen) 19 mg/dL (8.4-25.7); Bilirubin, Total 0.9 mg/dL (0.2-1.2); Calc. Creatinine Clearance 148 mL/min (70-130); Calcium 8.3 mg/dL (7.8-10.44); Carbon Dioxide 25 mmol/L (22-29); Chloride 107 mmol/L (98-107); Estimated GFR 57; Globulin 3.5 g/dL (2.4-3.5); Glucose 172 mg/dL (70-105); Potassium 3.7 mmol/L (3.5-5.1); Protein, Total 6.6 g/dL (6.0-8.3); Sodium 145 mmol/L (136-145)
[2022-12-22] MEDS: Propofol 1,000 MG/100 ML VIAL IV PRN (05:17)
[2022-12-22] MEDS: Dexamethasone 4 mg/ml Vial SLOW IVP SCH (08:14)
[2022-12-22] MEDS: cefTRIAXone\\ROCEPHIN 2 GM in Sodium Chloride 0.9% 100 ML IVPB SCH (16:43)
[2022-12-22] MEDS: HumaLOG 300 UNITS/3 ML VIAL SC PRN ×2 (16:44→20:47)
[2022-12-23 03:48] LABS: Anion Gap 16 mmol/L (10-20); BUN (Urea Nitrogen) 20 mg/dL (8.4-25.7); CRP (Inflammatory) 18.15 mg/dL (= or < 0.5); Calc. Creatinine Clearance 143 mL/min (70-130); Calcium 8.2 mg/dL (7.8-10.44); Carbon Dioxide 27 mmol/L (22-29); Chloride 106 mmol/L (98-107); Estimated GFR 55; Glucose 151 mg/dL (70-105); Potassium 3.9 mmol/L (3.5-5.1); Sodium 145 mmol/L (136-145)
[2022-12-23 04:02] LABS: #Monocytes 1.3 10x3/uL (0.0-1.1); #Neutrophils 16.9 10x3/uL (1.5-8.4); %Basophils 0.1 % (0.0-2.0); %Eosinophils 0.1 % (0.0-6.0); %Lymphocytes 7.2 % (18.0-47.0); %Monocytes 6.3 % (0.0-10.0); %Neutrophils 85.8 % (40.0-75.0); Hemoglobin 11.1 g/dL (13.5-17.5); Mean Corpuscular HGB CONC 30.6 g/dL (32.0-36.0); Mean Corpuscular Hemoglobin 30.4 pg (27.0-33.0); Mean Corpuscular Volume 99.5 fl (81.2-95.1); Mean Platelet Volume 11.8 fl (7.4-10.4); Platelet Count 250 10x3/uL (150-450); RBC Distribution Width 13.5 % (11.5-14.5); Red Blood Cell (RBC) Count 3.65 10x6/uL (4.32-5.72); White Blood Cell (WBC) Count 19.7 10x3/uL (3.5-10.5)
[2022-12-23 04:10] VITALS: TEMP 98.7
[2022-12-23] MEDS ORDERED: Morphine 4 MG/ML VIAL SLOW IVP PRN (07:30)
[2022-12-23] MEDS ORDERED: Morphine 2 MG/ML VIAL SLOW IVP PRN (07:34)
[2022-12-23] MEDS: Carvedilol 12.5 MG TAB PO SCH ×2 (08:06→16:08)
[2022-12-23] MEDS: Dexamethasone 4 mg/ml Vial SLOW IVP SCH (08:06)
[2022-12-23] MEDS: Heparin 5,000 UNITS/ML VIAL SC SCH ×3 (09:08→21:31)
[2022-12-23] MEDS: HumaLOG 300 UNITS/3 ML VIAL SC PRN ×3 (09:08→15:26)
[2022-12-23 13:52] LABS: Bilirubin Neg (Negative); Blood, Urine 10 (Negative); Clarity Clear (Clear); Glucose, Urine (Dipstick) Normal (Negative); Ketone, Urine Negative (Negative); Leukocyte 25 (Negative); Nitrite Negative (Negative); Protein, Urine (Dipstick) 30 mg/dl (Neg-Trace); Specific Gravity, Urine 1.015 (1.005-1.030); Urobilinogen Normal mg/dL (Less than 2)
[2022-12-23 13:59] LABS: Bacteria/HPF Rare-Few HPF (None Seen); RBC/HPF 0-3 HPF (0-3); Squamous Epithelial 0-3 HPF (0-3); WBC/HPF 0-3 HPF (0-3)
[2022-12-23] MEDS: cefTRIAXone\\ROCEPHIN 2 GM in Sodium Chloride 0.9% 100 ML IVPB SCH (17:09)
[2022-12-24 03:43] LABS: #Eosinphils 0.1 10x3/uL (0.0-0.5); #Monocytes 0.9 10x3/uL (0.0-1.1); #Neutrophils 10.8 10x3/uL (1.5-8.4); %Basophils 0.1 % (0.0-2.0); %Eosinophils 0.4 % (0.0-6.0); %Lymphocytes 12.8 % (18.0-47.0); %Monocytes 6.7 % (0.0-10.0); Hemoglobin 11.1 g/dL (13.5-17.5); Mean Corpuscular HGB CONC 30.2 g/dL (32.0-36.0); Mean Corpuscular Hemoglobin 30.2 pg (27.0-33.0); Mean Corpuscular Volume 99.7 fl (81.2-95.1); Platelet Count 246 10x3/uL (150-450); RBC Distribution Width 13.2 % (11.5-14.5); Red Blood Cell (RBC) Count 3.68 10x6/uL (4.32-5.72); White Blood Cell (WBC) Count 13.6 10x3/uL (3.5-10.5)
[2022-12-24 03:58] LABS: Anion Gap 13 mmol/L (10-20); BUN (Urea Nitrogen) 22 mg/dL (8.4-25.7); Calc. Creatinine Clearance 132 mL/min (70-130); Calcium 8.2 mg/dL (7.8-10.44); Carbon Dioxide 29 mmol/L (22-29); Chloride 102 mmol/L (98-107); Estimated GFR 50; Glucose 194 mg/dL (70-105); Potassium 3.9 mmol/L (3.5-5.1); Sodium 140 mmol/L (136-145)
[2022-12-24 04:04] LABS: CRP (Inflammatory) 8.79 mg/dL (= or < 0.5)
[2022-12-24 07:19] VITALS: BP 189/92
[2022-12-24] MEDS: Heparin 5,000 UNITS/ML VIAL SC SCH (07:32)
[2022-12-24] MEDS: Carvedilol 12.5 MG TAB PO SCH (07:32)
[2022-12-24] MEDS: HumaLOG 300 UNITS/3 ML VIAL SC PRN (07:55)
[2022-12-24] MEDS ORDERED: metFORMIN 500 MG TAB PO SCH (08:00)
[2022-12-24] MEDS ORDERED: Losartan Potassium 50 MG TAB PO SCH (09:00)
[2022-12-24] MEDS ORDERED: Aspirin 81 mg Enteric Coated Tablet PO SCH (09:00)
== END 2022-12-24 11:07 | disposition home or self-care (01) | DRG 853 ==
LOC: SUATTDRO 13:50 → CSHERS 13:50 → CSHIMCU 19:00
PROVIDERS: ADMIT Family Medicine; ATTEND Family Medicine
PROC: 0C9PXZZ Drainage of Tonsils, External Approach (ICD-10-PCS; principal; 2022-12-21)
PROC: 0W33XZZ Control Bleeding in Oral Cavity and Throat, External Approach (ICD-10-PCS; 2022-12-21)
DX: A41.9 Sepsis, unspecified organism (principal); J96.21 Acute and chronic respiratory failure with hypoxia; N17.0 Acute kidney failure with tubular necrosis; J36 Peritonsillar abscess; R65.20 Severe sepsis without septic shock; R04.1 Hemorrhage from throat; E66.01 Morbid (severe) obesity due to excess calories; E11.9 Type 2 diabetes mellitus without complications; I11.0 Hypertensive heart disease with heart failure; I50.9 Heart failure, unspecified; G47.33 Obstructive sleep apnea (adult) (pediatric); E78.5 Hyperlipidemia, unspecified; Z79.899 Other long term (current) drug therapy; Z79.82 Long term (current) use of aspirin; Z79.84 Long term (current) use of oral hypoglycemic drugs
CPT/HCPCS: 36415; 36416; 36600; 70491; 71045; 80048; 80053; 81001; 82805; 85025; 85610; 85730; 86140; 86850; 86900; 86901; 94002; 94003; 94150; 94760; 94762; 96365; 96375; J0171; J0360; J0696; J1100; J1644; J1815; J2060; J2250; J2704; J3490; J7050; Q9967